=== PATIENT | male | born 1980 | race Caucasian/White ===

== ENCOUNTER 2016-11-09 12:00 | Inpatient (IN) | payer OTHER ==
--- NOTE | ~2016-11-09 | DS ---
Unit #: [id number] #: [id number] Patient: AGNES DESAI [id number] [facility] [address] [place] [address] [id number] I MR#: [id number] NAME: AGNES DESAI. ROOM: [facility] Age: 36 Sex: M Admission Date: 11/09/2016 : 1980 Discharge Date: 11/12/2016 Attending Physician: Adrian Bolivar M.D. Primary Care Physician: Primary Care Physician No DISCHARGE SUMMARY REASON FOR ADMISSION The patient is a 36-year-old white male, admitted with increasing suicidal ideation after he had attempted to hang himself. HOSPITAL COURSE The patient was admitted to the [facility] unit and placed on suicide precautions. He was begun on citalopram 20 mg daily for depression and tolerated the medication well. Melatonin was added on a p.r.n. basis for sleep. The patient's stay in the hospital was a brief and uneventful one. He was pleasant and cooperative, and active within the therapeutic milieu and showed rapid brightening of mood. He had made arrangements to stay for his brother and was in agreement with plan for followup in the intensive outpatient program following discharge which was ordered on 11/12/2016. FINAL DIAGNOSES Major depressive disorder, single episode, moderate. DISPOSITION ON DISCHARGE The patient is discharged on the following medications: Citalopram 20 mg daily for depression. DISCHARGE INSTRUCTIONS No dietary or physical restrictions were placed on the patient at the time of discharge. FOLLOWUP Followup will take place in the intensive outpatient program provided by this facility and through the auspices of community mental health resources. PROGNOSIS The patient's prognosis is considered good. Dictated by... Adrian Bolivar M.D. CB/sung TD: 11/12/2016 16:25 JOB #: [id number] Unit #: [id number] #: [id number] Patient: AGNES DESAI DISCHARGE SUMMARY Page 1 of 1 X Adrian Bolivar MD DISCHARGE SUMMARY
--- NOTE | ~2016-11-09 | PN ---
Unit #: [id number] #: [id number] Patient: AGNES DESAI [id number] [facility] [address] [place] [address] [id number] MR#: [id number] NAME: AGNES DESAI. ROOM: [facility] Age: 36 Sex: M Admission Date: 11/09/2016 : 1980 Attending Physician: Adrian Bolivar M.D. Admitting Physician: Adrian Bolivar M.D. Primary Care Physician: Primary Care Physician Earlene ATKINS PROGRESS NOTES DATE 11/11/2016 DISCUSSION The patient slept poorly last night but did have his nicotine patch on. I have instructed him to avail himself of trazodone. The patient has been approved for insurance and will be able to participate in intensive outpatient program. Discharge could take place as early as tomorrow. Dictated by... Adrian Bolivar M.D. CB/bzdana TD: 11/11/2016 13:41 JOB #: [id number] [facility] PROGRESS NOTES Page 1 of 1 X Adrian Bolivar MD X PROGRESS NOTE
--- NOTE | ~2016-11-09 | PA ---
Unit #: [id number] #: [id number] Patient: AGNES DESAI [id number] [facility] [address] [place] [address] [id number] MR#: [id number] NAME: AGNES DESAI. ROOM: [facility] Age: 36 Sex: M Admission Date: 11/09/2016 : 1980 Date of Assessment: 11/10/2016 Attending Physician: Adrian Bolivar M.D. Admitting Physician: Adrian Bolivar M.D. Primary Care Physician: Primary Care Physician No PSYCHIATRIC ASSESSMENT IDENTIFYING INFORMATION The patient is a 36-year-old white male admitted to the [address] [place] [address] unit with increasing suicidal ideation. INFORMANT(S) Patient. RELIABILITY Good. CHIEF COMPLAINT I acted out and tried to hurt myself. HISTORY OF PRESENT ILLNESS The patient is a 36-year-old white male who has faced multiple recent stressors. His mother 5 weeks ago in his arms from exacerbation of COPD. The patient reports that as a result her home in which he had been residing is now in probate and he is not allowed to live there causing him to be homeless. The patient had attempted to hang himself 2 days prior to admission to the hospital. He was brought to this facility by his brother yesterday. 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 The patient reports that he had attempted to sleep by taking "6 catnaps a day" and his sleep has been adversely effected. He denies any loss of appetite. He continues to endorse hopelessness and suicidal ideation when seen today. PAST PSYCHIATRIC HISTORY None. FAMILY HISTORY Noncontributory. SOCIAL HISTORY The patient is a father of 3 children. He is presently homeless. The patient reports use of alcohol on "special occasions" and smokes marijuana frequently. He has a history of methamphetamine abuse but states that he stopped about a year and a half ago. MEDICAL HISTORY Noncontributory. MEDICATION HISTORY None. Unit #: [id number] #: [id number] Patient: AGNES DESAI ALLERGIES None. MENTAL STATUS EXAM At this time, reveals the patient to be a well-developed, well-nourished white male appearing his stated age. He is in no apparent physical distress at time of examination. He is awake, alert, oriented in all spheres. His mood is pleasant but dysphoric. His affect congruent. Speech is generally relevant and coherent. There are no gross deficits in memory or cognition noted. Intelligence is judged to be in the average range based on fund of knowledge. The patient is cooperative throughout the interview. He is currently reporting positive suicidal ideation. He denies homicidal ideation. He denies any psychotic symptoms. His judgement and insight appear to be intact. ASSETS AND LIABILITIES Patient's assets, motivation for change. Liabilities, lack of resources. ADMITTING DIAGNOSES 1. Major depressive disorder, single episode, moderate. 2. History of neck injury. PSYCHIATRIC PLAN/TREATMENT GOALS The patient remains hospitalized for safety and stabilization. A trial of citalopram 20 mg daily will be initiated to address the patient's depressive symptoms. The patient will participate in appropriate lei and milieu activities. ESTIMATED LENGTH OF STAY Three to five days. Dictated by... Adrian Bolivar M.D. LALITO/steven TD: 11/10/2016 16:37 JOB #: [id number] PSYCHIATRIC ASSESSMENT Page 1 of 1 X Adrian Bolivar MD X PSYCHIATRIC ASSESSMENT
--- NOTE | ~2016-11-09 | HP ---
Unit #: [id number] #: [id number] Patient: AGNES DESAI [id number] [facility] [address] [place] [address] [id number] MR#: [id number] NAME: AGNES DESAI. ROOM: [facility] Age: 36 Sex: M Admission Date: 11/09/2016 : 1980 Attending Physician: Adrian Bolivar M.D. Admitting Physician: Adrian Bolivar M.D. Primary Care Physician: Primary Care Physician No HISTORY AND PHYSICAL HISTORY OF PRESENT ILLNESS Agnes is a 36-year-old male admitted on 11/09/2016 to [facility] for suicidal ideation. He has a history of multiple suicide attempts. PAST MEDICAL HISTORY Chronic neck pain. PAST SURGICAL HISTORY None. ALLERGIES Cipro and trazodone. SOCIAL HISTORY Smokes greater than 1 pack of cigarettes daily. Social alcohol use and daily marijuana use. He is currently single and homeless. He had previously been living with his mother but she several weeks ago and he is currently grieving her . FAMILY HISTORY Noncontributory. REVIEW OF SYSTEMS CONSTITUTIONAL: No fever or chills. HEENT: Denies any sore throat, ear pain or runny nose. CARDIOVASCULAR: Denies chest pain, irregular heart rhythm or palpitations. CHEST: Denies shortness of breath or cough. No hemoptysis. GASTROINTESTINAL: Denies nausea, vomiting, diarrhea or chronic constipation. ENDOCRINE: Denies history of increased thirst or urination. No recent significant weight loss or gain. GENITOURINARY: Denies dysuria, frequency, or hematuria. SKIN: Denies any rashes. HEMATOLOGIC: Denies history of increased bleeding or bruising. MUSCULOSKELETAL: Denies any hot, swollen joints. No generalized muscle pain. NEUROLOGIC: Denies problems with vision or speech. No frequent, severe headaches. No numbness, tingling or weakness in any extremities. Denies loss of bladder or bowel control. CURRENT MEDICATIONS None. Unit #: [id number] #: [id number] Patient: AGNES DESAI PHYSICAL EXAMINATION GENERAL: Alert, oriented, in no acute distress. VITAL SIGNS: Blood pressure 109/63, heart rate 97, respirations 20, temperature 98.5. HEIGHT: 5 feet 10. WEIGHT: 163 pounds. SKIN: Warm and dry without rash or lesion. HEENT: Normocephalic. TMs not viewed. Oral and nasal passages clear. Conjunctivae clear. PERRLA. EOMs intact. NECK: Supple without lymphadenopathy or thyromegaly. HEART: Regular rate and rhythm without murmur. LUNGS: Clear. ABDOMEN: Soft, nontender, without masses or hepatosplenomegaly. : Not done. EXTREMITIES: No evidence of cyanosis, clubbing or edema. Moves all without focal deficit. NEUROLOGICAL: Grossly within normal limits. Cranial Nerves: II: Visual garcia are intact. III, IV AND : Extraocular movements are intact. Pupils are equal, round and reactive to light. V: Facial sensation is grossly normal. VII: Facial movements and expression are normal. VIII: Auditory acuity grossly intact. IX, X: Uvula is midline. Phonation is normal. XI: Patient shrugs shoulders and turns head normally. XII: Tongue protrudes in the midline. Sensory and Motor Function: Sensory and motor sensation is grossly normal. Motor: moves all extremities well. Coordination: Gait is normal. Deep Tendon Reflexes: Intact. IMPRESSION 1. Psychiatric admission. 2. Chronic neck pain. RECOMMENDATIONS PSYCHIATRIC: Per psychiatrist. MEDICAL: No contraindications to participate in facility's activities. MEDICAL PROGNOSIS Good. MEDICAL CONDITION Stable. Dictated by... Kelsea Deluca/steven TD: 11/10/2016 17:54 JOB #: [id number] Unit #: [id number] #: [id number] Patient: AGNES DESAI HISTORY AND PHYSICAL Page 1 of 1 X ROSA ISELA SANDOVAL APRN HISTORY AND PHYSICAL
[~2016-11-09 12:00] MED LIST: NO MEDICATIONS; SULFACETAMIDE NS
[2016-11-10 10:06] LABS: BASOPHIL# 0.1 X10e3 (0-0.3); EOSINOPHIL# 0.2 X10e3 (0-0.7); EOSINOPHIL% 3.2 % (0.0-7.0); HEMATOCRIT 45.9 % (38.0-50.0); LYMPHOCYTE# 2.5 X10e3 (1.0-3.5); LYMPHOCYTE% 33.3 % (17.0-45.0); MEAN CELL VOLUME 88.1 FL (83-96); MEAN CORPUSCULAR HEMOGLOBIN 28.8 PG (28-34); MEAN CORPUSCULAR HGB CONC 32.7 g/dL (30-36); MEAN PLATELET VOLUME 8.9 FL (6.5-11.5); MONOCYTE# 0.7 X10e3 (0-1.0); MONOCYTE% 9.9 % (3.0-12.0); NEUTROPHIL# 3.9 X10e3 (1.5-7.1); NEUTROPHIL% 52.6 % (40-75); PLATELET COUNT 210 X10e3 (140-420); RED BLOOD COUNT 5.21 X10e (3.90-5.60); RED CELL DISTRIBUTION WIDTH 15.7 % (11.0-15.5); WHITE BLOOD COUNT 7.5 X10e3 (4.0-10.5)
[2016-11-10 10:21] LABS: URINE APPEARANCE CLEAR; URINE BILIRUBIN NEG (NEG); URINE BLOOD NEG (NEG); URINE COLOR YELLOW; URINE GLUCOSE NEG (NEG); URINE KETONE NEG (NEG); URINE LEUKOCYTE ESTERASE NEG (NEG); URINE NITRATE NEG (NEG); URINE PROTEIN NEG (NEG); URINE SPECIFIC GRAVITY 1.016 (1.003-1.035); URINE UROBILINOGEN 0.2 MG/DL (NEG)
[2016-11-10 10:24] LABS: ALBUMIN SERUM 3.8 g/dL (3.5-5.0); BILIRUBIN,TOTAL 0.8 mg/dL (0.2-2.0); BUN/CREATININE RATIO 10.9; CALCIUM SERUM 9.1 mg/dL (8.4-10.2); CREATININE SERUM 1.1 mg/dL (0.6-1.4); GLOM FILT RATE Estimated 85.3 mL/min (>60); POTASSIUM 4.9 mmol/L (3.5-5.1); PROTEIN TOTAL SERUM 6.8 g/dL (6.0-8.3)
[2016-11-10 10:36] LABS: DIFF IND YES
[2016-11-10 10:46] LABS: AMPHETAMINE NEG (NEG); BARBITURATES NEG (NEG); BENZODIAZEPINES NEG (NEG); COCAINE NEG (NEG); MARIJUANA POS (NEG); OPIATES NEG (NEG); TRICYCLIC ANTIDEPRESSANTS NEG (NEG); U METHADONE NEG (NEG)
[2016-11-10 11:07] LABS: ANISOCYTOSIS SL; PLATELET ESTIMATE NORMAL (NORMAL); RBC NORMAL YES
== END 2016-11-12 12:45 | disposition home or self-care (01) | DRG 885 ==
LOC: P2L 15:43
PROVIDERS: Specialist
DX: F32.1 Major depressive disorder, single episode, moderate (principal); Z59.0 Homelessness
CPT/HCPCS: 80053; 80307; 81003; 85025